=== PATIENT | female | born 1985 | race African-American/Black ===

== ENCOUNTER 2017-07-09 02:21 | Emergency (ER) | payer OTHER ==
[~2017-07-09] VITALS: Ht 149.9 cm; Wt 58.0 kg
[2017-07-09 07:40] VITALS: BP 120/83
== END 2017-07-09 08:50 | disposition home or self-care (01) ==
LOC: ER 02:21
DX: H66.91 Otitis media, unspecified, right ear (principal); H61.22 Impacted cerumen, left ear; R05 Cough; F12.10 Cannabis abuse, uncomplicated
CPT/HCPCS: 99283; Z7610

== ENCOUNTER 2019-08-20 20:19 | Emergency (ER) | payer MEDICAID, OTHER ==
[~2019-08-20] VITALS: Ht 149.9 cm; Wt 55.3 kg
[2019-08-20] MEDS ORDERED: KETOROLAC 60MG/2ML VIAL IM ONE (21:30)
[2019-08-20 22:46] VITALS: BP 120/70
== END 2019-08-20 22:46 | disposition home or self-care (01) ==
LOC: ER 20:19
DX: M79.672 Pain in left foot (principal); F12.10 Cannabis abuse, uncomplicated; X50.1XXA Overexertion from prolonged static or awkward postures, initial encounter; Y93.89 Activity, other specified; Y92.018 Other place in single-family (private) house as the place of occurrence of the external cause
CPT/HCPCS: 73630; 96372; 99283; J1885